=== PATIENT | male | born 1960 | race Caucasian/White ===

== ENCOUNTER 2021-11-22 12:58 | Emergency (ER) | payer BC ==
[2021-11-22] MEDS ORDERED: Ketorolac 10 MG Tab PO ONE (12:59)
[2021-11-22] MEDS ORDERED: Ondansetron 4 MG Tab.DIS PO ONE (12:59)
[2021-11-22] MEDS ORDERED: Sodium Chloride 0.9% 10 ML Syringe FLUSH PRN (13:05)
[2021-11-22] MEDS ORDERED: Sodium Chloride 0.9% 1,000 ML IV ONE (13:05)
[2021-11-22] MEDS ORDERED: Ondansetron 4 MG/2 ML SDV IVPUSH ONE (13:09)
[2021-11-22 13:49] LABS: ANION GAP 17.7 mEq/L (7-13); CHLORIDE,CL 101 mmol/L (98-107); SODIUM,NA 138 mmol/L (136-145)
[2021-11-22 13:50] LABS: ESTIMATED GFR 65 mL/min (>=60)
[2021-11-22] MEDS ORDERED: Tamsulosin 0.4 MG Cap.ER PO ONE (14:11)
[2021-11-22] MEDS ORDERED: Ketorolac 30 MG/ML SDV IVPUSH ONE (14:11)
[2021-11-22] MEDS ORDERED: Ondansetron 4 MG Tab.DIS ONE (14:38)
[2021-11-22] MEDS ORDERED: Ketorolac 10 MG Tab ONE (14:38)
== END 2021-11-22 14:50 | disposition home or self-care (01) ==
LOC: DL.ED 12:58
DX: K80.20 Calculus of gallbladder without cholecystitis without obstruction (principal); I10 Essential (primary) hypertension; Z79.899 Other long term (current) drug therapy
CPT/HCPCS: 36415; 74176; 80053; 80307; 81001; 82150; 83690; 85025; 96361; 96374; 96375; 99284; A9270; J1885; J2405; J7030

== ENCOUNTER 2024-01-03 05:19 | Day surgery (SDC) | payer BC ==
[2024-01-03] MEDS: Dextrose 5%-0.45% NaCl 1,000 ML IV SCH (05:39)
[2024-01-03] MEDS ORDERED: Midazolam 1 MG/ML 2 ML SDV ONE (05:53)
[2024-01-03] MEDS ORDERED: fentaNYL 100 MCG/2 ML SDV ONE (05:54)
[2024-01-03] MEDS: fentaNYL 100 MCG/2 ML SDV IV ONE ×2 (06:27)
[2024-01-03] MEDS: Midazolam 1 MG/ML 2 ML SDV IV ONE ×4 (06:28→06:34)
== END 2024-01-03 08:05 | disposition home or self-care (01) ==
LOC: DL.ENDO 05:19
PROVIDERS: ATTEND Internal Medicine Gastroenterology
DX: Z12.11 Encounter for screening for malignant neoplasm of colon (principal); I10 Essential (primary) hypertension; N20.0 Calculus of kidney; E66.09 Other obesity due to excess calories; Z68.35 Body mass index [BMI] 35.0-35.9, adult
CPT/HCPCS: J2250; J3010; J7799

== ENCOUNTER 2025-01-31 08:51 | Emergency (ER) | payer OTHER, BC | END 2025-01-31 09:22 | disposition home or self-care (01) | LOC: DL.ED 08:51 | DX: S39.012A Strain of muscle, fascia and tendon of lower back, initial encounter (principal); I10 Essential (primary) hypertension; Z79.899 Other long term (current) drug therapy; X50.1XXA Overexertion from prolonged static or awkward postures, initial encounter | CPT/HCPCS: 99283 ==